=== PATIENT | female | born 1950 | race Caucasian/White ===

== ENCOUNTER 2022-12-20 07:44 | Day surgery (SDC) | payer MEDICARE, OTHER ==
[~2022-12-20] VITALS: Ht 157.5 cm; Wt 94.6 kg
[~2022-12-20 07:44] MED LIST: AMLO5 PO; LATA.005SO BOTHEYES; METO50ER PO; OMEP20ER PO
--- NOTE | 2022-12-20 08:13 | NUR ---
12/20/22 0813 Jaky Rhodes LEFT EYE VERIFIED CORRECT EYE PER CONSENT AND VIA PT. TETRACAINE PLACED IN LEFT EYE AT 0806. PLEDGET PLACED IN LEFT EYE AT 0807. PT TOLERATED WELL. CALL LIGHT WITHIN REACH.
[2022-12-20 09:42] VITALS: BP 156/77
--- NOTE | 2022-12-20 09:42 | NUR ---
12/20/22 0942 Eduardo Pablo IV REMOVED INTACT. SITE WNL. PT TOW.
== END 2022-12-20 09:17 | disposition home or self-care (01) ==
LOC: ORSCSDS 07:44
PROVIDERS: Student in an Organized Health Care Education/Training Program
PROC: 08RK3JZ Replacement of Left Lens with Synthetic Substitute, Percutaneous Approach (ICD-10-PCS; principal; 2022-12-20 09:00)
DX: H25.13 Age-related nuclear cataract, bilateral (principal); H52.209 Unspecified astigmatism, unspecified eye; I10 Essential (primary) hypertension; K21.9 Gastro-esophageal reflux disease without esophagitis; E66.9 Obesity, unspecified; Z68.38 Body mass index [BMI] 38.0-38.9, adult; Z79.899 Other long term (current) drug therapy
CPT/HCPCS: J2250; J3010; J7040; V2632

== ENCOUNTER → 2023-11-01 | Outpatient (CLI) | payer MEDICARE, OTHER | END | disposition home or self-care (01) | LOC: LAB SHORT 07:57 | DX: L57.0 Actinic keratosis (principal) | CPT/HCPCS: 88305 ==

== ENCOUNTER 2024-05-05 10:29 | Day surgery (SDC) | payer MEDICARE, OTHER ==
[~2024-05-05] VITALS: Ht 157.5 cm; Wt 76.8 kg
[~2024-05-05 10:29] MED LIST changes: +Lactated Ringer's 1,000 ML IV ONE; +propofoL 50 ML IV ONE
[2024-05-05] MEDS ORDERED: Lactated Ringer's 1,000 ML IV ONE (11:12)
[2024-05-05 12:41] VITALS: BP 113/74
== END 2024-05-05 12:45 | disposition home or self-care (01) ==
LOC: ORSCSDS 10:29
PROVIDERS: Specialist
PROC: 0DB68ZX Excision of Stomach, Via Natural or Artificial Opening Endoscopic, Diagnostic (ICD-10-PCS; principal; 2024-05-05 11:45)
PROC: 0D758ZZ Dilation of Esophagus, Via Natural or Artificial Opening Endoscopic (ICD-10-PCS; principal; 2024-05-05 11:45)
PROC: 0DJD8ZZ Inspection of Lower Intestinal Tract, Via Natural or Artificial Opening Endoscopic (ICD-10-PCS; principal; 2024-05-05 11:45)
DX: R13.10 Dysphagia, unspecified (principal); K22.2 Esophageal obstruction; K44.9 Diaphragmatic hernia without obstruction or gangrene; Z12.11 Encounter for screening for malignant neoplasm of colon; K57.30 Diverticulosis of large intestine without perforation or abscess without bleeding; K64.8 Other hemorrhoids; E03.9 Hypothyroidism, unspecified; Z79.899 Other long term (current) drug therapy; Z87.891 Personal history of nicotine dependence
CPT/HCPCS: 43248; 43239; G0121; 88305; 88312; C1769; J2704; J7120